=== PATIENT | male | born 1975 | race Caucasian/White ===

== ENCOUNTER 2017-02-15 19:50 | Emergency (ER) | payer OTHER ==
[2017-02-15 19:52] VITALS: BP 129/78; PULSE 101; RESP 18; TEMP 97.8; O2SAT 97
--- NOTE | 2017-02-15 20:46 | PD ---
Physical Exam Date Seen by Provider: Feb 15, 2017 Time Seen by Provider: 20:44 Data Data Last Documented VS Vital Signs Date Time Temp Pulse Resp B/P Pulse Ox O2 Delivery O2 Flow Rate FiO2 02/15/17 19:52 97.8 101 18 129/78 97 Room Air MDM Supervised Visit with ANAND: No Narrative Course 41 YO male with complaint of left sided back/ flank pain x "a few hours." + urinary urgency. --fever, chills. Vitals reviewed. Awaiting bed placement. Eve Medina Feb 15, 2017 20:46
[2017-02-15 21:43] VITALS: BP 125/84; PULSE 94; RESP 16; O2SAT 97
[2017-02-15] MEDS ORDERED: SODIUM CHLORIDE 0.9% FLUSH 10 ML FLUSH IV FLUSH PRN (21:45)
[2017-02-15] MEDS ORDERED: SODIUM CHLOR 0.9% 1000 ML INJ 1,000 ML IV SCH (21:49)
--- NOTE | 2017-02-15 21:51 | PD ---
HPI Chief Complaint: Complaint Time Seen by Provider: 21:50 Travel History International Travel<30 days: No Contact w/Intl Traveler<30days: No Traveled to known affect area: No History of Present Illness HPI 41-year-old male presents to the emergency department for evaluation of sudden onset left flank pain that began about 3 hours ago. States that the pain has been constant but has had intermittent waves of severe pain. States that he has had some nausea but denies vomiting. He states that over the past 2 days he has noticed the urge to urinate but when he urinates he produces only a small amount. Pain is aggravated with laying on his left side. Denies any alleviating factors. He denies any fever, chills, vomiting, diarrhea, constipation, hematuria, cough or cold symptoms, chest pain, shortness of breath. Prior abdominal surgeries include appendectomy. Denies any history of kidney stones. No other complaints. PFSH Past Medical History Medical History: Denies Significant Hx Diminished Hearing: No Tetanus Vaccination: > 5 Years Past Surgical History Appendectomy: Yes Social History Alcohol Use: No Tobacco Use: No Substance Use: Yes (MARIJUANA OCCASIONALY ) Allergies-Medications (Allergen,Severity, Reaction): Coded Allergies: No Known Allergies (Unverified , 02/15/17) Reported Meds & Prescriptions Reported Meds & Active Scripts Active No Active Prescriptions or Reported Medications Review of Systems Except as stated in HPI: all other systems reviewed are Neg Physical Exam Narrative GENERAL: Well-nourished and well-developed pleasant male patient in no acute distress who is nontoxic appearing. SKIN: Warm and dry. HEAD: Normocephalic and atraumatic. EYES: No injection, drainage, or hyphema noted. PERRLA. EOMI. ENT: No nasal drainage noted. Oropharynx is clear. NECK: Supple and the trachea is midline. CARDIOVASCULAR: Regular rate and rhythm. RESPIRATORY: Breath sounds are equal bilaterally with no accessory muscle use, wheezing, rhonchi, or crackles. GASTROINTESTINAL: Mild left flank tenderness to palpation. No rebound tenderness or guarding. Abdomen is soft and nondistended. MUSCULOSKELETAL: No obvious deformities, swelling, cyanosis, or ecchymosis is present throughout the upper and lower extremities. Patient has full range of motion without any signs of neurovascular compromise. BACK: Nontender without any obvious deformities, bony point tenderness, or crepitus noted throughout the thoracic and lumbar vertebrae. NEUROLOGICAL: Awake, alert, and oriented. Normal speech and gait. Cranial nerves are grossly intact. Data Data Last Documented VS Vital Signs Date Time Temp Pulse Resp B/P Pulse Ox O2 Delivery O2 Flow Rate FiO2 02/15/17 21:43 94 16 125/84 97 Room Air 02/15/17 19:52 97.8 Orders Complete Blood Count With Diff (02/15/17 21:43) Comprehensive Metabolic Panel (02/15/17 21:43) Urinalysis - C+S If Indicated (02/15/17 21:43) Iv Access Insert/Monitor (02/15/17 21:43) Ecg Monitoring (02/15/17 21:43) Oximetry (02/15/17 21:43) Sodium Chloride 0.9% Flush (Ns Flush) (02/15/17 21:45) Lipase (02/15/17 21:44) Ct Abd/Pel W/O Iv Contrast (02/15/17 21:49) Morphine Inj (Morphine Inj) (02/15/17 22:00) Ondansetron Inj (Zofran Inj) (02/15/17 22:00) Sodium Chlor 0.9% 1000 Ml Inj (Ns 1000 M (02/15/17 21:49) Ketorolac Inj (Toradol Inj) (02/15/17 22:00) Labs Laboratory Tests Test 02/15/17 02/15/17 21:00 21:45 Urine Color YELLOW Urine Turbidity CLEAR Urine pH 6.0 Urine Specific [place] 1.015 Urine Protein NEG mg/dL Urine Glucose (UA) NEG mg/dL Urine Ketones NEG mg/dL Urine Occult Blood NEG Urine Nitrite NEG Urine Bilirubin NEG Urine Urobilinogen 4.0 MG/DL Urine Leukocyte Esterase NEG Urine RBC LESS THAN 1 /hpf Urine WBC LESS THAN 1 /hpf Urine Squamous Epithelial <1 /hpf Cells Microscopic Urinalysis Comment CULT NOT INDICATED White Blood Count 8.9 TH/MM3 Red Blood Count 5.64 MIL/MM3 Hemoglobin 16.5 GM/DL Hematocrit 47.2 % Mean Corpuscular Volume 83.7 FL Mean Corpuscular Hemoglobin 29.3 PG Mean Corpuscular Hemoglobin 35.0 % Concent Red Cell Distribution Width 13.7 % Platelet Count 221 TH/MM3 Mean Platelet Volume 8.3 FL Neutrophils (%) (Auto) 55.1 % Lymphocytes (%) (Auto) 33.9 % Monocytes (%) (Auto) 9.4 % Eosinophils (%) (Auto) 0.9 % Basophils (%) (Auto) 0.7 % Neutrophils # (Auto) 4.9 TH/MM3 Lymphocytes # (Auto) 3.0 TH/MM3 Monocytes # (Auto) 0.8 TH/MM3 Eosinophils # (Auto) 0.1 TH/MM3 Basophils # (Auto) 0.1 TH/MM3 CBC Comment DIFF FINAL Differential Comment Sodium Level 140 MEQ/L Potassium Level 3.9 MEQ/L Chloride Level 106 MEQ/L Carbon Dioxide Level 25.7 MEQ/L Anion Gap 8 MEQ/L Blood Urea Nitrogen 9 MG/DL Creatinine 1.15 MG/DL Estimat Glomerular Filtration 71 ML/MIN Rate Random Glucose 91 MG/DL Calcium Level 8.8 MG/DL Total Bilirubin 0.5 MG/DL Aspartate Amino Transf 24 U/L (AST/SGOT) Alanine Aminotransferase 46 U/L (ALT/SGPT) Alkaline Phosphatase 84 U/L Total Protein 7.5 GM/DL Albumin 4.1 GM/DL Lipase 185 U/L [facility] Medical Decision Making Medical Screen Exam Complete: Yes Emergency Medical Condition: Yes Differential Diagnosis Kidney stone versus UTI versus hydronephrosis versus muscle spasm versus colitis Narrative Course 41-year-old male presents to the emergency department for evaluation of sudden onset left flank pain. Patient is afebrile, vital signs are stable. IV access is obtained, labs have been drawn and sent. Patient is placed on chronic telemetry and pulse oximetry monitoring. Patient is administered IV fluids, morphine, Zofran and Toradol. CT of the abdomen and pelvis without contrast has been ordered and is pending. CBC is unremarkable. CMP is unremarkable. Urinalysis is unremarkable. Patient signed out to Dr. Hassan who will assume care of the patient and disposition pending CT scan. Scripts No Active Prescriptions or Reported Meds Laura Olivier Feb 15, 2017 21:50
[2017-02-15] MEDS ORDERED: KETOROLAC TROMETHAMINE 30 MG/ML (IVP) VIAL IVP ONE (22:00)
[2017-02-15] MEDS ORDERED: MORPHINE SULFATE 4 MG/ML INJ IV PUSH ONE (22:00)
[2017-02-15] MEDS ORDERED: ONDANSETRON HCL 4 MG/2 ML VIAL IVP ONE (22:00)
[2017-02-15 22:01] LABS: AUTOMATED NEUTROPHIL # 4.9 TH/MM3 (1.8-7.7); BASOPHIL # 0.1 TH/MM3 (0-0.2); BASOPHIL % 0.7 % (0.0-2.0); EOSINOPHIL # 0.1 TH/MM3 (0-0.4); EOSINOPHIL % 0.9 % (0.0-4.0); HEMATOCRIT 47.2 % (39.0-51.0); HEMO FLAGS DIFF FINAL; LYMPH % 33.9 % (9.0-44.0); MEAN CELL VOLUME 83.7 FL (80.0-100.0); MEAN CORPUSCULAR HEMOGLOBIN 29.3 PG (27.0-34.0); MONO % 9.4 % (0.0-8.0); NEUT % 55.1 % (16.0-70.0); PLATELET COUNT 221 TH/MM3 (150-450); RED BLOOD COUNT 5.64 MIL/MM3 (4.50-5.90); RED CELL DISTRIBUTION WIDTH 13.7 % (11.6-17.2); WHITE BLOOD COUNT 8.9 TH/MM3 (4.0-11.0)
[2017-02-15 22:12] LABS: BLOOD, URINE NEG (NEG); COMMENT (UR) CULT NOT INDICATED; CULTURE IF INDICATED CULT NOT INDICATED; GLUCOSE,URINE NEG (NEG); KETONE, URINE NEG (NEG); NITRITE,URINE NEG (NEG); SQUAMOUS EPITHELIAL CELL URINE <1 /hpf (0-5); URINE COLOR YELLOW (YELLW/STRAW)
[2017-02-15 22:13] LABS: ANION GAP 8 MEQ/L (5-15); AST (GOT) 24 U/L (15-37); BICARBONATE 25.7 MEQ/L (21.0-32.0); BLOOD UREA NITROGEN 9 MG/DL (7-18); CHLORIDE 106 MEQ/L (98-107); GLOMERULAR FILTRATION RATE 71 ML/MIN (>89); POTASSIUM 3.9 MEQ/L (3.5-5.1); SODIUM (NA) 140 MEQ/L (136-145)
[2017-02-15 22:14] LABS: ALT (GPT) 46 U/L (12-78)
[2017-02-15 22:16] LABS: ALKALINE PHOSPHATASE 84 U/L (45-117); TOTAL BILIRUBIN ADULT 0.5 MG/DL (0.2-1.0)
--- NOTE | 2017-02-15 22:50 | PD ---
Physical Exam Narrative I, Dr. Hassan, have reviewed the advance practice practitioner's documentation and am in agreement, met with the patient face to face, made the diagnosis, and the medical decision making was done by me. *My assessment and Findings: Musculoskeletal pain vs. nephrolithiasis vs. pyelonephritis 41yo M with left sided back pain for 3 hours. States he was sitting down when he felt the pain and it is worst with movement. +Nausea. Denies any fever, abdominal pain, testicular pain, penile discharge, vomiting. Labs reviewed, no leukocytosis. Lipase normal. Normal creatinine. UA showed no leukocyte or nitrite. CTa/p showed no evidence of kidney stones or hydronephrosis. Pt given zofran, morphine and toradol and reevaluated at bedside. Pain has resolved. Pt tolerating PO. Return precautions given. Data Data Last Documented VS Vital Signs Date Time Temp Pulse Resp B/P Pulse Ox O2 Delivery O2 Flow Rate FiO2 02/15/17 21:43 94 16 125/84 97 Room Air 02/15/17 19:52 97.8 Orders Complete Blood Count With Diff (02/15/17 21:43) Comprehensive Metabolic Panel (02/15/17 21:43) Urinalysis - C+S If Indicated (02/15/17 21:43) Iv Access Insert/Monitor (02/15/17 21:43) Ecg Monitoring (02/15/17 21:43) Oximetry (02/15/17 21:43) Sodium Chloride 0.9% Flush (Ns Flush) (02/15/17 21:45) Lipase (02/15/17 21:44) Ct Abd/Pel W/O Iv Contrast (02/15/17 21:49) Morphine Inj (Morphine Inj) (02/15/17 22:00) Ondansetron Inj (Zofran Inj) (02/15/17 22:00) Sodium Chlor 0.9% 1000 Ml Inj (Ns 1000 M (02/15/17 21:49) Ketorolac Inj (Toradol Inj) (02/15/17 22:00) Labs Laboratory Tests Test 02/15/17 02/15/17 21:00 21:45 Urine Color YELLOW Urine Turbidity CLEAR Urine pH 6.0 Urine Specific [place] 1.015 Urine Protein NEG mg/dL Urine Glucose (UA) NEG mg/dL Urine Ketones NEG mg/dL Urine Occult Blood NEG Urine Nitrite NEG Urine Bilirubin NEG Urine Urobilinogen 4.0 MG/DL Urine Leukocyte Esterase NEG Urine RBC LESS THAN 1 /hpf Urine WBC LESS THAN 1 /hpf Urine Squamous Epithelial <1 /hpf Cells Microscopic Urinalysis Comment CULT NOT INDICATED White Blood Count 8.9 TH/MM3 Red Blood Count 5.64 MIL/MM3 Hemoglobin 16.5 GM/DL Hematocrit 47.2 % Mean Corpuscular Volume 83.7 FL Mean Corpuscular Hemoglobin 29.3 PG Mean Corpuscular Hemoglobin 35.0 % Concent Red Cell Distribution Width 13.7 % Platelet Count 221 TH/MM3 Mean Platelet Volume 8.3 FL Neutrophils (%) (Auto) 55.1 % Lymphocytes (%) (Auto) 33.9 % Monocytes (%) (Auto) 9.4 % Eosinophils (%) (Auto) 0.9 % Basophils (%) (Auto) 0.7 % Neutrophils # (Auto) 4.9 TH/MM3 Lymphocytes # (Auto) 3.0 TH/MM3 Monocytes # (Auto) 0.8 TH/MM3 Eosinophils # (Auto) 0.1 TH/MM3 Basophils # (Auto) 0.1 TH/MM3 CBC Comment DIFF FINAL Differential Comment Sodium Level 140 MEQ/L Potassium Level 3.9 MEQ/L Chloride Level 106 MEQ/L Carbon Dioxide Level 25.7 MEQ/L Anion Gap 8 MEQ/L Blood Urea Nitrogen 9 MG/DL Creatinine 1.15 MG/DL Estimat Glomerular Filtration 71 ML/MIN Rate Random Glucose 91 MG/DL Calcium Level 8.8 MG/DL Total Bilirubin 0.5 MG/DL Aspartate Amino Transf 24 U/L (AST/SGOT) Alanine Aminotransferase 46 U/L (ALT/SGPT) Alkaline Phosphatase 84 U/L Total Protein 7.5 GM/DL Albumin 4.1 GM/DL Lipase 185 U/L [facility] Supervised Visit with ANAND: Yes Diagnosis Primary Impression: Musculoskeletal back pain Patient Instructions: General Instructions Departure Forms: Tests/Procedures Additional Instruction: Please follow up with your PMD in 3-7 days. Return to the ED if symptoms worsen. Med/Other Pt SpecificInfo: Prescription(s) given Scripts Ibuprofen 600 Mg [id number] Mg PO Q8HR PRN (PAIN) #20 TAB Ref 0 Prov:Sandra Hassan DO 02/16/17 Disposition: 01 DISCHARGE HOME Condition: Stable Sandra Hassan DO Feb 15, 2017 22:50
--- NOTE | 2017-02-15 23:00 | RADRPT ---
EXAM DATE/TIME: 02/15/2017 22:46 [place] COMPARISON: No previous studies available for comparison. INDICATIONS : Patient complains of left flank pain 1 day. ORAL CONTRAST: No oral contrast ingested. RADIATION DOSE: 9.83 CTDIvol (mGy) MEDICAL HISTORY : None SURGICAL HISTORY : Appendectomy. ENCOUNTER: Initial ACUITY: 1 day PAIN SCALE: 7/10 LOCATION: Left flank TECHNIQUE: Volumetric scanning of the abdomen and pelvis was performed. Using automated exposure control and ad justment of the mA and/or kV according to patient size, radiation dose was kept as low as reasonably achievable to obtain optimal diagnostic quality images. FINDINGS: LOWER LUNGS: The visualized lower lungs are clear. LIVER: Homogeneous density without lesion. There is no dilation of the biliary tree. No calcified gallston es. SPLEEN: Normal size without lesion. PANCREAS: Within normal limits. KIDNEYS: Normal in size and shape. There is no mass, stone, or hydronephrosis. ADRENAL GLANDS: Within normal limits. VASCULAR: There is no aortic aneurysm. BOWEL/MESENTERY: The stomach, small bowel, and colon demonstrate no acute abnormality. There is no free intraperitone al air or fluid. ABDOMINAL WALL: Within normal limits. RETROPERITONEUM: There is no lymphadenopathy. BLADDER: No wall thickening or mass. REPRODUCTIVE: Within normal limits. INGUINAL: There is no lymphadenopathy or hernia. MUSCULOSKELETAL: Within normal limits for patient age. CONCLUSION: No evidence of kidney stones or hydronephrosis. Umang Atkins MD on February 15, 2017 at 22:55 Board Certified Radiologist. This report was verified electronically.
[2017-02-16] MEDS ORDERED: IBUP-232 PO (00:10)
== END 2017-02-16 00:42 | disposition home or self-care (01) ==
LOC: NEPE 19:50
DX: M54.9 Dorsalgia, unspecified (principal)
CPT/HCPCS: 74176; 80053; 81001; 83690; 85025; 96361; 96374; 96375; 99285; J1885; J2270; J2405; J7030